=== PATIENT | female | born 1955 | race African-American/Black ===

== ENCOUNTER 2017-01-01 15:16 | Inpatient (IN) | payer MEDICAID, OTHER ==
[~2017-01-01] VITALS: Ht 175.3 cm; Wt 112.5 kg
[2017-01-01 15:28] VITALS: BP 157/90
--- NOTE | 2017-01-01 15:36 | NUR ---
PATIENT TAKEN TO BED #6 AMBULATED
[2017-01-01] MEDS ORDERED: NACL 0.9% 1,000 ML IV ONE (15:40)
--- NOTE | 2017-01-01 15:40 | NUR ---
DEMINISHED LUNG SOUNDS.PROD. COUGH. ERMD MADE AWARE
--- NOTE | 2017-01-01 15:40 | NUR ---
PATIENT PRESENTS TO ED WITH SOB;PT HAS PRODUCTUVE COUGH . PT STATES SHE'S BEEN COUGHING FOR A COUPLE OF WEEKS;DENIES N/V/D; SKIN IS PINK/WARM/DRY; AAOX4 WITH EVEN AND STEADY GAIT; LUNGS CLEAR BL; HR EVEN AND REGULAR; PT DENIES ANY FEVER, CP, SOB, OR COUGH AT THIS TIME; PATIENT STATES PAIN OF 0/10 AT THIS TIME;PATIENT POSITIONED FOR COMFORT; HOB ELEVATED; BEDRAILS UP X2; BED DOWN. ALL MONITORS IN PLACED;ER MD MADE AWARE OF PT STATUS.
--- NOTE | 2017-01-01 15:56 | NUR ---
Dr. Jeffrey evaluating patient at bedside.
--- NOTE | 2017-01-01 15:58 | NUR ---
XRAY at bedside.
[2017-01-01] MEDS ORDERED: NITROGLYCERIN 2% 1 GM PKT TP ONE (16:00)
[2017-01-01] MEDS ORDERED: ALBUTEROL SULFATE/IPRATROPIU 3 ML SOL IH ONE (16:00)
--- NOTE | 2017-01-01 16:10 | NUR ---
RT at bedside to give patient breathing treatment.
[2017-01-01 16:13] LABS: BASOPHILS # (AUTO) 0.1 K/uL (0.00-0.22); BASOPHILS % (AUTO) 0.8 % (0.0-2.0); EOSINOPHILS # (AUTO) 0.1 K/uL (0-0.4); EOSINOPHILS % (AUTO) 1.9 % (0.0-4.0); HEMATOCRIT 38.5 % (36-48); HEMOGLOBIN 13.1 g/dL (12.0-16.0); LYMPHOCYTES # (AUTO) 0.6 K/uL (2.5-16.5); LYMPHOCYTES % (AUTO) 9.3 % (20.5-51.1); MEAN CORPUSCULAR HEMOGLOBIN 30 pg (27-31); MEAN CORPUSCULAR HGB CONC 34 g/dL (33-37); MEAN CORPUSCULAR VOLUME 88 fL (80-94); MONOCYTES # (AUTO) 0.8 K/uL (0.8-1.0); MONOCYTES % (AUTO) 12.6 % (1.7-9.3); NEUTROPHILS # (AUTO) 4.8 K/uL (1.8-7.7); NEUTROPHILS % (AUTO) 75.4 % (42.2-75.2); PLATELET COUNT (AUTO) 234 K/uL (140-450); RED BLOOD CELL COUNT(AUTO) 4.39 MIL/uL (4.20-5.40); RED CELL DISTRIBUTION WIDTH 12.1 % (11.6-13.7); WHITE BLOOD COUNT (AUTO) 6.4 K/uL (4.8-10.8)
[2017-01-01 16:21] LABS: ANION GAP 16.1 (8-16); CREATININE 1.2 mg/dL (0.6-1.3); POTASSIUM 4.1 mmol/L (3.5-5.1)
[2017-01-01 16:27] LABS: ALBUMIN 3.7 g/dL (3.4-5.0); TOTAL BILIRUBIN 0.5 mg/dL (0.0-1.0)
[2017-01-01 16:44] LABS: PROTHROMBIN TIME 10.1 secs (10.8-13.4)
--- NOTE | 2017-01-01 17:24 | NUR ---
DR CONNELL AT BEDSIDE.
[2017-01-01] MEDS ORDERED: ACETAMINOPHEN 325 MG TAB PO PRN (17:35)
[2017-01-01] MEDS ORDERED: ONDANSETRON 4 MG/2 ML VIAL IVP PRN (17:35)
[2017-01-01] MEDS: ASPIRIN 81 MG TAB.CHEW PO SCH (17:40)
[2017-01-01] MEDS ORDERED: ASPIRIN 81 MG TAB.CHEW PO ONE (17:45)
[2017-01-01] MEDS ORDERED: MORPHINE SULFATE 2 MG/ML SYR IVP ONE (17:55)
[2017-01-01] MEDS ORDERED: ACETAMINOPHEN/CODEINE 300/30MG 1 TAB PO ONE (18:00)
[2017-01-01 18:11] LABS: CHOL/HDL RATIO 6.1 (1-4.5); FREE T4 (FREE THYROXINE) 0.84 ng/dL (0.76-1.46); PHOSPHORUS 3.5 mg/dL (2.5-4.9); THYROID STIMULATING HORMONE 0.7 uIU/mL (0.34-3.74)
[2017-01-01 18:30] VITALS: BP 155/90
--- NOTE | 2017-01-01 18:30 | NUR ---
PT ARRIVED FROM ER VIA GURNEY, PT IS AAOX4, ON ROOM AIR, IV TO LEFT AC 22G INFUSING WELL, CAUGHT NOTED, SKIN INTACT. ALL SAFETY PRECAUTIONS MET, ORIENTED PT TO ROOM AND ENVIRONMENT, CALL LIGHT WITHIN REACH, FAMILY AT BEDSIDE
--- NOTE | 2017-01-01 18:33 | NUR ---
Patient will be admitted to care of DR CARDOZO. Admited to TELE. Will go to room 119 B. Belongings list completed. Report to GERARDO MAGANA.
[2017-01-01] MEDS ORDERED: NACL 0.9% 1,000 ML IV SCH (19:10)
--- NOTE | 2017-01-01 19:15 | NUR ---
ENDORSED PLAN OF CARE TO NIGHT NURSE, PT IN STABLE CONDITION, FAMILY AT BEDSIDE
--- NOTE | 2017-01-01 19:17 | NUR ---
RECEIVED REPORT FROM DAY SHIFT GERARDO EAGLE. PT RESTING IN BED. AAOX4. NO S/S OF ACUTE DISTRESS. PT DENIES PAIN. IV SITE PATENT AND INTACT. FAMILY AT BEDSIDE. TELE IN PLACE. PLAN OF CAR DISCUSSED WITH PT. PT VERBALIZED UNDERSTANDING. CALL LIGHT WITHIN REACH. SAFETY MEASURES ENSURED. WILL CONTINUE TO MONITOR.
[2017-01-01 20:00] VITALS: BP 167/97
[2017-01-01] MEDS: DOCUSATE SODIUM 100 MG GELCAP PO SCH (20:57)
[2017-01-01] MEDS: CARVEDILOL 12.5 MG TAB PO SCH (20:57)
[2017-01-01] MEDS: FUROSEMIDE 20 MG/2 ML VIAL IVP SCH (20:58)
--- NOTE | 2017-01-01 21:02 | NUR ---
PM MEDICATIONS GIVEN WITH EDUCATION. PT VERBALIZED UNDERSTANDING. PT STATES PAIN 6/10 TOOTHACHE. WILL MEDICATE TOLERATED.
[2017-01-01] MEDS: HYDROcodone/APAP 7.5/325 MG 1 TAB PO PRN (21:08)
--- NOTE | 2017-01-01 21:36 | NUR ---
2120 PLACED PATIENT ON CPAP NASAL MASK OF 6CM. PT DID NOT WANT BIPAP. DR LANGFORD. PT WEARS MASK AT NIGHT.
--- NOTE | 2017-01-01 23:05 | NUR ---
SCD'S IN PLACE. PT RESTING IN BED. BIPAP ON. NO S/S OF ACUTE DISTRESS. PT DENIES PAIN. CALL LIGHT WITHIN REACH. SAFETY MEASURES ENSURED. WILL CONTINUE TO MONITOR.
[2017-01-02] VITALS: BP 103/60
--- NOTE | 2017-01-02 01:12 | NUR ---
PT RESTING IN BED. NO S/S OF ACUTE DISTRESS. PT STATES TOOTHACHE PAIN HAS RETURNED. WILL MEDICATE ORDERED
[2017-01-02] MEDS: HYDROcodone/APAP 7.5/325 MG 1 TAB PO PRN ×2 (01:28→08:24)
--- NOTE | 2017-01-02 03:02 | NUR ---
PT SLEEPING IN BED ON BIPAP. NO S/S OF ACUTE DISTRESS. WILL CONTINUE TO MONITOR.
[2017-01-02 04:00] VITALS: BP 150/75
--- NOTE | 2017-01-02 07:16 | NUR ---
PT OFF CPAP NO SIGNS OF DISTRESS NOTED AT THIS TIME
--- NOTE | 2017-01-02 07:45 | NUR ---
ENDORSED PLAN OF CARE TO DAY RN.
--- NOTE | 2017-01-02 07:46 | NUR ---
RECEIVED BEDSIDE REPORT FROM MECHANIC DRIVER RN. PT AWAKE AND ALERT, NO SIGNS OF ACUTE DISTRESS. BOWEL SOUNDS ACTIVE IN ALL 4 QUADRANTS. BOWEL AND BLADDER CONTINENCE. AMBULATORY WITH BRP. SKIN INTACT. PATIENT HAS RIGHT SIDE TOOTACHE 5/10, WILL MEDICATE. RE-ORIENTED TO HOSPITAL AND TO UNIT, PATIENT VERBALIZED UNDERSTANDING. BED IN LOW POSITION WITH BILATERAL HALF SIDE RAILS UP, CALL LIGHT WITHIN REACH. WILL CONTINUE TO MONITOR. Addendum: 01/02/17 at 0938 by Brittany Matthews RN RECEIVED BEDSIDE REPORT FROM MECHANIC DRIVER RN. PT AWAKE AND ALERT, NO SIGNS OF ACUTE DISTRESS. BOWEL SOUNDS ACTIVE IN ALL 4 QUADRANTS. BOWEL AND BLADDER CONTINENCE. AMBULATORY WITH BRP. SKIN INTACT. PATIENT HAS RIGHT SIDE TOOTACHE 5/10, WILL MEDICATE. IV PATENT AND ASYMPTOMATIC. RE-ORIENTED TO HOSPITAL AND TO UNIT, PATIENT VERBALIZED UNDERSTANDING. BED IN LOW POSITION WITH BILATERAL HALF SIDE RAILS UP, CALL LIGHT WITHIN REACH. WILL CONTINUE TO MONITOR.
[2017-01-02 08:00] VITALS: BP 154/78
[2017-01-02] MEDS: FUROSEMIDE 20 MG/2 ML VIAL IVP SCH (08:22)
[2017-01-02] MEDS: CARVEDILOL 12.5 MG TAB PO SCH (08:23)
[2017-01-02] MEDS: DOCUSATE SODIUM 100 MG GELCAP PO SCH (08:23)
[2017-01-02] MEDS: ASPIRIN 81 MG TAB.CHEW PO SCH (08:23)
[2017-01-02] MEDS ORDERED: ATORVASTATIN 20 MG TAB PO SCH (09:00)
[2017-01-02] MEDS ORDERED: LISINOPRIL 20 MG TAB PO SCH (09:00)
--- NOTE | 2017-01-02 09:02 | NUR ---
PATIENT HAS BEEN SCREENED AND CATEGORIZED MODERATE NUTRITION RISK. PATIENT WILL BE SEEN WITHIN 3-5 DAYS OF ADMISSION. 01/04/17-01/06/[address]
[2017-01-02 12:00] VITALS: BP 137/72
--- NOTE | 2017-01-02 13:49 | NUR ---
RECEIVED NEW ORDER FOR DISCHARGE FROM DR NAVARRO, NOTED, WILL CARRY OUT.
[2017-01-02] MEDS ORDERED: LISI-420 PO (13:56)
[2017-01-02] MEDS ORDERED: FURO-572 PO (13:56)
[2017-01-02] MEDS ORDERED: ATOR20TA40 PO (13:56)
[2017-01-02] MEDS ORDERED: ASPI81CT27 PO (13:56)
[2017-01-02] MEDS ORDERED: CARV12.52 PO (13:56)
--- NOTE | 2017-01-02 15:50 | NUR ---
PT AWAKE AND ALERT, NO SIGNS OF ACUTE DISTRESS. EDUCATED PATIENT REGARDING DISCHARGE INSTRUCTIONS INCLUDING A 30 MIN WALK DAILY TOLERATED, EATING A LOW SALT AND LOW SUGAR DIET, NEW PRESCRIPTIONS, FOLLOW UP WITH [facility], AND SIGNS AND SYMPTOMS OF INFECTION AND WORSENING CONDITION, PT VERBALIZED UNDERSTANDING. TOOK OFF MONITOR, CUT OFF WRIST BANDS.
--- NOTE | 2017-01-02 16:30 | NUR ---
PT AWAKE AND ALERT, NO SIGNS OF ACUTE DISTRESS. TOOK OUT PATIENT IV AND ESCORTED OUT TO FRONT LOBBY TO GO HOME VIA PRIVATE AUTO WITH SON.
--- NOTE | 2017-01-03 11:36 | NUR ---
PER REQUEST OF TAINA BOOKKEEPING MANAGER, NEED TO FAX REVIEW TO [facility]. FAXED RETRO, ER REPORT, H&P AND DISCHARGE SUMMARY TO [facility] [phone] PHONE [phone]
== END 2017-01-02 16:30 | disposition home or self-care (01) | DRG 194 ==
LOC: MED 15:16 → MTU 17:39
PROVIDERS: ADMIT Family Medicine; ATTEND Family Medicine
DX: I13.0 Hypertensive heart and chronic kidney disease with heart failure and stage 1 through stage 4 chronic kidney disease, or unspecified chronic kidney disease (principal); N18.3 Chronic kidney disease, stage 3 (moderate); I50.43 Acute on chronic combined systolic (congestive) and diastolic (congestive) heart failure; E78.5 Hyperlipidemia, unspecified; K21.9 Gastro-esophageal reflux disease without esophagitis; J45.909 Unspecified asthma, uncomplicated; Z91.14 Patient's other noncompliance with medication regimen
CPT/HCPCS: 36415; 71010; 80053; 82150; 83036; 83690; 83735; 83880; 84100; 84439; 84443; 84484; 85025; 85610; 85730; 87081; 93005; 94660; 96360; 96361; 99285; J1940; J2270; J7030; J7620; Q0092